=== PATIENT | female | born 1970 | race Caucasian/White ===

== ENCOUNTER 2016-10-31 12:16 | Day surgery (SDC) | payer OTHER ==
[2016-10-30 16:13] VITALS: BMI 26.6
[2016-10-31] MEDS ORDERED: ROCURONIUM BROMIDE 50 MG/5 ML VIAL ONE (13:30)
[2016-10-31] MEDS ORDERED: MIDAZOLAM HCL 2 MG/2 ML SINGLE DOSE VIAL ONE (13:30)
[2016-10-31] MEDS ORDERED: LIDOCAINE 1%/EPI 1:100000 (50 ML MULTI DOSE VIAL) ONE (13:37)
[2016-10-31] MEDS ORDERED: ONDANSETRON 4 MG/2 ML VIAL IVPUSH PRN (13:56)
[2016-10-31] MEDS ORDERED: LIDOCAINE 1%/EPI 1:100000 (50 ML MULTI DOSE VIAL) INF ONE (13:56)
[2016-10-31] MEDS ORDERED: oxyCODONE HCL 5 MG TABLET PO PRN (13:56)
[2016-10-31] MEDS ORDERED: ACETAMINOPHEN 1000 MG/100 ML VIAL (NON FORMULARY) IVPB ONE ×2 (13:57→14:45)
[2016-10-31] MEDS ORDERED: LACTATED RINGERS SOLUTION 1,000 ML IV SCH (14:00)
[2016-10-31] MEDS ORDERED: NEOSTIGMINE METHYLSULFATE 0.5 MG/ML - 10 ML MDV ONE (14:04)
[2016-10-31] MEDS ORDERED: ACETAMINOPHEN INJECTION 100 ML IVPB ONE (14:42)
[2016-10-31 14:54] VITALS: TEMP 97.9
[2016-10-31 18:11] VITALS: BP 140/84; PULSE 72
--- NOTE | 2016-11-01 05:34 | OP ---
DATE OF OPERATION: PREOPERATIVE DIAGNOSIS: Chronic tonsillitis with tonsillar hypertrophy. POSTOPERATIVE DIAGNOSIS: Chronic tonsillitis with tonsillar hypertrophy. PROCEDURE: Tonsillectomy. INDICATION: The patient is a 46-year-old female who has had a history of chronic and recurrent sore throats, tonsillar hypertrophy as well as snoring and on serial exam is noted to have markedly enlarged and cryptic tonsils filled with necrotic debris. She is now indicated for formal surgery. The patient understood risks, benefits, and alternatives and did wish to proceed. ANESTHESIA: General endotracheal intubation. DESCRIPTION OF PROCEDURE: The patient was brought to the operating room and placed in supine position. After successful induction of anesthesia and placement of endotracheal tube, a shoulder roll was placed, and the patient's face and neck was prepped and draped in usual sterile fashion. McIvor mouth gag was placed into the oral cavity and retracted open to expose the oropharynx, which was suspended from the Iqbal stand. Tonsils were noted to be 3+ bilaterally and markedly cryptic. Tonsillar fossa was injected with 6 mL of 1% lidocaine with 1:100,000 epinephrine. A subcapsular plane using the Coblation device with EVac Xtra handpiece was used to perform subcapital removal of bilateral tonsils preserving anterior and posterior tonsillar pillar mucosa. Bleeding was controlled using bipolar coblation device. No active bleeding was noted. Nasal pharynx was visualized with no residual adenoids. Mouth gag was removed with evidence of injury to dentition or mucosa, and the patient was extubated and brought to the recovery room in stable condition. ESTIMATED BLOOD LOSS: 20 mL. SPECIMENS: Bilateral tonsils. Dayan [id number] MTDD
--- NOTE | 2016-11-04 12:32 | PATH ---
Surgical Pathology Report Patient Name: GEGE ROGERS Med. Rec. #: [id number] /Age/Gender: 1970 (Age: 46) / F Account: [id number] Location: [facility] Taken: 10/31/2016 Received: 11/03/2016 Reported: 11/04/2016 Physicians: Sergei Davalos M.D. Specimen(s) Received A: RIGHT TONSIL B: LEFT TONSIL Clinical History Tonsil hypertrophy Final Diagnosis A. TONSIL, RIGHT, EXCISION: REACTIVE FOLLICULAR LYMPHOID HYPERPLASIA. B. TONSIL, LEFT, EXCISION: REACTIVE FOLLICULAR LYMPHOID HYPERPLASIA. Electronically Signed Giovanni Noonan M.D. Gross Description A. Received in formalin labeled "right tonsil," is a 2.0 x 1.8 x 1.0 cm ovoid portion of soft tissue, consistent with a tonsil. The outer surface is wade, convoluted and varies from smooth to cauterized. Sectioning reveals wade, smooth parenchyma with cryptic architecture. No discrete masses are identified. A product support representative section is submitted in one cassette. B. Received in formalin labeled "left tonsil," is a 2.4 x 1.7 x 1.1 cm ovoid portion of soft tissue, consistent with a tonsil. The outer surface is wade, convoluted and varies from smooth to cauterized. Sectioning reveals wade, smooth parenchyma with cryptic architecture. No discrete masses are identified. A product support representative section is submitted in one cassette. /11/03/2016 saudi11/03/2016
== END 2016-10-31 16:45 | disposition home or self-care (01) ==
LOC: JASU-SURG 12:16
PROVIDERS: ATTEND Otolaryngology
PROC: 0C5PXZZ Destruction of Tonsils, External Approach (ICD-10-PCS; principal; 2016-10-31 13:00)
DX: J35.01 Chronic tonsillitis (principal); J35.1 Hypertrophy of tonsils
CPT/HCPCS: 84703; 88304-TC; 94760